=== PATIENT | female | born 1970 | race American Indian/Alaskan Native ===

== ENCOUNTER 2017-03-22 01:14 | Emergency (ER) | payer MEDICAID ==
[2017-03-22] MEDS ORDERED: ADRENALIN ONE (01:45)
[2017-03-22] MEDS ORDERED: SODIUM BICARBONATE IV ONE (01:45)
[2017-03-22] MEDS ORDERED: CALCIUM CHLORIDE IV ONE (01:45)
[2017-03-22] MEDS ORDERED: ADRENALIN 16 MG in NACL 0.9% 250ML 234 ML IV SCH (02:00)
--- NOTE | 2017-03-22 02:08 | Emergency Department Report ---
HPI - General Chief Complaint: Cardiac Arrest/CPR Time Seen by Provider: 03/22/17 01:59 - HPI HPI: 47-year-old brought to the ED, ACLS in progress. According to paramedics patient was down 15 minutes prior to paramedics being called. Apparently patient went to the bathroom and collapsed. blue lips and fingers. patient received epi in route and fsbs was 190. no family at bedside for history. ED Past Medical Hx - Past Medical History Previous Medical History?: Yes Hx Hypertension: Yes Hx Diabetes: Yes Additional medical history: Brain tumor - Surgical History Past Surgical History?: Yes Additional Surgical History: brain tumor removal at 11 years old - Social History Smoking Status: Unknown if ever smoked - Medications Home Medications: Home Medications Medication Instructions Recorded Confirmed Last Taken Type No Known Home Medications [No 02/07/17 02/07/17 Unknown History Reported Home Medications] ED Review of Systems ROS: Stated complaint: CARDIAC ARREST Other details as noted in HPI Comment: Unobtainable due to pts medical conditions Physical Exam - Physical Exam Physical Exam: pupils fixed and dilated, no spont resp no cardiac activity, no pulses acls in progress ED Course - Reevaluation(s) Reevaluation #1: 03/22/17 pupils fixed and dilated, no spont resp no cardiac activity, no pulses acls in progress Initially patient regained pulse. EKG was done did show(as ST elevation, no BP found. Epi drip ordered. Labs came to bedside to draw blood, patient lost pulses again. ACLS was started. 2 rounds of epi given, 2 pills remain fixed and dilated. No cardiac activity, at pulse check, no carotid pulses, no femoral pulses, no brachial pulses. ACLS stopped At 1:43 AM. No family at bedside for update. Charge nurse reached patient's sister via phone who lives in [place], patient was driving on her way to [place], news of the , will be given once patient refused hospital. Critical care attestation.: If time is entered above; I have spent that time in minutes in the direct care of this critically ill patient, excluding procedure time. ED Disposition Clinical Impression: Cardiac arrest Disposition: DC-20 Is pt being admited?: No Does the pt Need Aspirin: No Condition: Stable Referrals: PRIMARY CARE, [Primary Care Provider] - 3-5 Days
== END 2017-03-22 03:16 ==
LOC: ED 01:14
DX: I46.9 Cardiac arrest, cause unspecified (principal); I10 Essential (primary) hypertension; E11.9 Type 2 diabetes mellitus without complications
CPT/HCPCS: 93005; 93010; 99285; J0171; J7050